=== PATIENT | male | born 1975 | race Two or more races ===

== ENCOUNTER 2025-06-16 16:35 | Emergency (ER) | payer OTHER, SELFPAY ==
--- NOTE | ~2025-06-16 | XR_ITS ---
CLINICAL HISTORY: pain, injury 3 view right hand Comparison: None provided Findings: No acute fracture. No dislocation. Oblique lucency involving distal shaft of 5th proximal phalanx suggestive of nutrient vessel. No significant loss of joint space or osteophytes. No erosions. IMPRESSION: 1. No acute findings This document has been electronically signed by: Radha Patel MD on 06/16/2025 17:52:24
[2025-06-16 16:39] VITALS: BP 131/68; PULSE 75; RESP 20; O2SAT 99; BMI 20.1
--- NOTE | 2025-06-16 16:41 | ED.GENADULT ---
[facility] - General Adult General Chief complaint: Wound/Laceration Stated complaint: rt hand laceration Time Seen by Provider: 06/16/25 19:44 Source: patient Mode of arrival: ambulatory Limitations: no limitations History of Present Illness ED Provider: Dr. Rodriguez [facility] narrative: 49-year-old male presented hospital today for hand laceration injury of the right hand. Patient sustained an injury to the lateral palmar side of the right 5th digit. There is does appear to be muscle injury. Related Data Previous Rx's ?Medication ?Instructions ?Recorded acetaminophen 325 mg tablet 650 mg (2 x 325 mg) PO Q6H pain 14 06/16/25 (Tylenol) days #112 tabs cephalexin 500 mg capsule 500 mg PO Q8H 7 days #21 caps 06/16/25 ibuprofen 400 mg tablet 400 mg PO Q8H 14 days #42 tabs 06/16/25 oxycodone 5 mg capsule 5 mg PO Q8H PRN pain #14 caps 06/16/25 Allergies Allergy/AdvReac Type Severity Reaction Status Date / Time No Known Allergies Allergy Verified 06/16/25 16:40 Review of Systems Review of Systems: Pertinent review of systems as mentioned in [facility]. All other system otherwise negative. [facility] Past Medical History [facility] Narrative: Medical history as mentioned in [facility] Social History Social History Advance Directives: No Advance Directives Information Provided: Yes Physical Exam ED Exam Exam: General: Pleasant, no distress, interacting appropriately Head: Normacephalic, atraumatic ENT: oral mucosa moist, neck supple, no tracheal deviation Extremities: There is a large laceration on the lateral aspect and palmar aspect of the right 5th digit. There appears to be transsection of the abductor digiti minimi. Patient has difficulty abducting his pinky. Pulse and sensation otherwise intact. Neurological: Awake and alert, no facial droop noted Skin: Warm and dry Psychiatric: Appropriate mood and thoughts Vital Signs: Vital Signs - 24 hr 06/16/25 16:39 06/16/25 22:07 Temperature 98.4 F Pulse Rate 75 68 Respiratory Rate 20 18 Blood Pressure 131/68 105/56 L Pulse Oximetry 99 99 Oxygen Delivery Method Room Air Room Air BMI result Body Mass Index 20.1 Course Course Course Narrative: Rapid medical examination performed in triage by Aspen De La Vega PA-C. Patient is a 49 year old assigned male at presenting to the emergency department with a right hand laceration. 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 Patient states that he is right hand dominant. Detailed physical exam and review of systems are deferred to the assistant community director. Imaging and boostrix ordered. Patient placed back in the waiting room pending room availability and results. Medications Administered Discontinued Medications Generic Name Dose Route Start Last Admin Trade Name Freq PRN Reason Stop Dose Admin Diphtheria/Tetanus/Acell Pertussis 0.5 ml 06/16/25 16:42 06/16/25 17:58 Diphth,Pertus(Acell),Tet Adult 0.5 Ml Syringe IM 06/16/25 16:43 0.5 ml .ONCE ONE Administration Procedures Laceration Laceration 1: Site: hand Side (If applicable): right Size (cm): 6 Description: irregular Depth: involves muscle layer Local Anesthetic: lidocaine 1% and with epi Amount of anesthesia used (mL): 10 Pre-repair: wound explored and irrigated extensively Skin layer closed with: nylon Size (cm): 5-0 Number of sutures: 9 Technique: simple, interrupted Muscle layer closed with: vicryl Size: 5-0 Number of sutures: 4 Technique: simple, interrupted Medical Decision Making Medical Decision Making [facility] Narrative: 49-year-old male presented hospital today for right hand laceration. I placed a total of 4 stitches into the patient's abductor digiti minimi for repair of the muscle. There is a clear transsection of the muscle on exam. I placed a total of 9 stitches to close the wound. Patient tolerated procedure well. Lidocaine with epinephrine was used for this procedure. We will plan to discharge patient with a prophylactic antibiotic Keflex, oxycodone will be prescribed for pain control with ibuprofen and Tylenol will be signed off as well. Differential Diagnosis Differential Diagnoses: The differential diagnosis associated with the presentation includes Hand laceration, muscle laceration, tendon laceration Lab Data [facility] Lab Attestation statement: I reviewed the patient's lab results. Independent Interpretation I performed an independent interpretation of an: Plain X-Ray Radiology Impression Discussion of test interpretation with radiology: I have reviewed the radiologist's reading. Discharge Plan Discharge Clinical Impression: Laceration of muscle Hand laceration Qualifiers: Encounter type: initial encounter Foreign body presence: without foreign body Laterality: right Qualified Code(s): S61.411A - Laceration without foreign body of right hand, initial encounter Patient Disposition: Home, Self-Care Instructions: Care For Your Stitches (ED), Laceration (ED) Prescriptions: New cephalexin 500 mg capsule 500 mg PO Q8H 7 Days Qty: 21 0RF oxycodone 5 mg capsule 5 mg PO Q8H PRN (Reason: pain) Qty: 14 0RF Rx Instructions: Partial Fill upon patient request. acetaminophen [Tylenol] 325 mg tablet 650 mg PO Q6H 14 Days Qty: 112 0RF ibuprofen 400 mg tablet 400 mg PO Q8H 14 Days Qty: 42 0RF Referrals: [facility] [Provider Group] Referral Note: Right ABductor digiti minimi laceration with knife. Hand evaluation please Clinical Impression: Hand laceration; Laceration of muscle Print Language: Mandarin Filipino
[2025-06-16] MEDS: Diphth,Pertus(ACell),Tet Adult 0.5 ML SYRINGE IM (17:58)
--- NOTE | 2025-06-16 20:12 | PC.NURSE ---
assumed care of pt, daughter at bedside, pt in bed holding wrapped hand up. provider to see pt, Xray report complete.
--- NOTE | 2025-06-16 20:56 | PC.NURSE ---
pharmacy called as 20 mL bottle was not stocked in [place] [place], pharmacy changed to 10 mL x2 vials, piper advised. Provider give the 2 vials of Xilocaine.
[2025-06-16 22:07] VITALS: BP 105/56; PULSE 68; RESP 18; TEMP 36.9; O2SAT 99
[2025-06-16] MEDS: oxyCODONE HCl Immed Release 5 MG TABLET PO (22:22)
[2025-06-16] MEDS: Lidocaine HCl 1%/Epi 1:100,000 10 ML VIAL 20 ML INFILTRATI (22:22)
[2025-06-16 23:00] VITALS: BP 105/56; PULSE 68; RESP 18; TEMP 36.9; O2SAT 99
== END 2025-06-16 23:02 | disposition home or self-care (01) ==
PROVIDERS: Emergency Provider Student in an Organized Health Care Education/Training Program
DX: S61.216A Laceration without foreign body of right little finger without damage to nail, initial encounter (principal); W26.0XXA Contact with knife, initial encounter; Y93.G3 Activity, cooking and baking; Y92.89 Other specified places as the place of occurrence of the external cause; Y99.0 Civilian activity done for income or pay; M79.641 Pain in right hand
CPT/HCPCS: 12002; 73130; 90471; 90715; 99284; J2004

== ENCOUNTER → 2025-06-16 16:42 | Outpatient (BNV) | payer OTHER, SELFPAY | PROVIDERS: Visit Provider Specialist | DX: M79.641 Pain in right hand (principal) | CPT/HCPCS: 73130 ==